=== PATIENT | male | born 1950 | race Caucasian/White ===

== ENCOUNTER → 2022-03-24 | Outpatient (CLI) | payer OTHER ==
[~2022-03-24] MED LIST: AMLO10 PO; ATEN25; CARI350 PO; CYCL10; DULO60 PO; ESOM20; FLUO20 PO; GEMF600; IRBE150; LORA1 PO; LORA2 PO; MORP30; MORP30 PO; NORT50; OMEP20ER; OXYC30; OXYC80ER; PROM25; QUET100 PO
== END | disposition home or self-care (01) ==
LOC: PLD 08:05 → LAB SHORT 08:05
DX: B35.1 Tinea unguium (principal); L60.2 Onychogryphosis
CPT/HCPCS: 88305; 88312

== ENCOUNTER → 2023-08-12 | Outpatient (CLI) | payer OTHER ==
[2023-08-16 11:34] LABS: Stool Occult Bld Immuno 1 Negative (NEGATIVE)
== END | disposition home or self-care (01) ==
LOC: LAB SHORT 11:00 → LAB 11:00 → LAB SHORT 08-15 11:00
PROVIDERS: Physician Assistant
DX: Z12.11 Encounter for screening for malignant neoplasm of colon (principal)
CPT/HCPCS: G0328